=== PATIENT | female | born 1960 | race Caucasian/White ===

== ENCOUNTER 2020-02-01 17:41 | Outpatient (CLI) | payer OTHER, SELFPAY ==
--- NOTE | ~2020-02-01 | MM_ITS ---
EXAMINATION: MM screening [facility] BI w brian HISTORY: Screening TECHNIQUE: Craniocaudal and mediolateral oblique 3-D tomosynthesis images were obtained and synthetic 2-D images were generated. CAD analysis was submitted and interpreted. COMPARISON: Comparison to multiple prior studies sequentially, with oldest reviewed study dated 01/2015. BREAST PARENCHYMAL COMPOSITION: The breasts are heterogeneously dense, which may obscure small masses . FINDINGS: There are stable benign bilateral breast calcifications and asymmetries. There is no eviden ce of suspicious mass, calcification, or architectural distortion to suggest malignancy in either ahsan ast. There has been no suspicious interval change. IMPRESSION: 1. No mammographic evidence of malignancy. 2. Recommend routine screening mammography in one year. BI-RADS Category 2: Benign finding(s). Reviewed, dictated and finalized at location A.
== END 2020-02-01 17:42 | disposition home or self-care (01) ==
PROVIDERS: PCP Family Medicine; Visit Provider Family Medicine
DX: Z12.31 Encounter for screening mammogram for malignant neoplasm of breast (principal)
CPT/HCPCS: 77063; 77067

== ENCOUNTER 2020-09-22 17:45 | Outpatient (CLI) | payer OTHER, SELFPAY | END 2020-09-22 17:46 | disposition home or self-care (01) | LOC: ANHCOVIDVC 17:45 | PROVIDERS: PCP Family Medicine | DX: Z23 Encounter for immunization (principal) | CPT/HCPCS: 0001A; 91300 ==

== ENCOUNTER 2020-10-13 17:47 | Outpatient (CLI) | payer OTHER, SELFPAY | END 2020-10-13 17:48 | disposition home or self-care (01) | LOC: ANHCOVIDVC 17:47 | PROVIDERS: PCP Family Medicine | DX: Z23 Encounter for immunization (principal) | CPT/HCPCS: 0002A; 91300 ==

== ENCOUNTER 2021-02-01 17:46 | Outpatient (CLI) | payer OTHER, SELFPAY ==
--- NOTE | ~2021-02-01 | MM_ITS ---
EXAMINATION: MM screening [facility] BI w brian HISTORY: Screening mammogram TECHNIQUE: Craniocaudal and mediolateral oblique 3-D tomosynthesis images were obtained and synthetic 2-D images were generated. CAD analysis was submitted and interpreted. COMPARISON: 02/01/2020, 01/22/2019, 01/20/2018, 01/13/2018 BREAST PARENCHYMAL COMPOSITION: There are scattered areas of fibroglandular density. FINDINGS: There is no evidence of suspicious mass, calcification, or architectural distortion to sugg est malignancy in either breast. There has been no suspicious interval change. IMPRESSION: 1. No mammographic evidence of malignancy. 2. Recommend routine screening mammography in one year. BI-RADS Category 1: Negative Reviewed, dictated and finalized at location A.
== END 2021-02-01 17:47 | disposition home or self-care (01) ==
LOC: ANHIMG 17:48
PROVIDERS: PCP Family Medicine; Visit Provider Family Medicine
DX: Z12.31 Encounter for screening mammogram for malignant neoplasm of breast (principal)
CPT/HCPCS: 77063; 77067

== ENCOUNTER 2021-10-05 18:26 | Emergency (ER) | payer OTHER, SELFPAY ==
[2021-10-05 18:48] VITALS: BP 139/88; PULSE 81; RESP 18; TEMP 37.3; O2SAT 100
--- NOTE | 2021-10-05 19:15 | ED.URI ---
HPI - URI/Sore Throat General Chief Complaint: Upper Respiratory Infection Stated Complaint: sorethroat,cough Time Seen by Provider: 10/05/21 18:38 Source: patient Mode of arrival: ambulatory Limitations: no limitations History of Present Illness HPI Narrative: 61-year-old female presents to [facility] with complaints of sore throat, postnasal drainage, nonproductive cough, hoarseness, nasal congestion and sinus pressure for the past 2 to 3 weeks. Patient took 1 dose of Claritin with little relief. Patient denies sick contacts. Patient denies recent travel. Patient is a non-smoker. MD elicited complaint: cough, rhinorrhea, nasal congestion and sinus pain Onset (ago): week(s) (2) Able to tolerate fluids by mouth: Yes Treatments prior to arrival: cold medicine Related Data Home Medications Medication Instructions Recorded Confirmed denosumab 60 mg/mL subcutaneous 60 mg SUBCUT [id number] 01/11/21 10/05/21 syringe Allergies Allergy/AdvReac Type Severity Reaction Status Date / Time Sulfa (Sulfonamide Allergy Severe RASH Verified 10/05/21 18:58 Antibiotics) sulfanilamide Allergy Unknown Rash Verified 10/05/21 18:58 ibandronate sodium AdvReac Severe Unknown Verified 10/05/21 18:58 [From [facility]] Review of Systems Constitutional: Constitutional: Denies chills, Denies fatigue, Denies fever(s) and Denies weakness ENT: Reports nasal congestion and Reports sore throat Cardiovascular: Cardiovascular: Denies chest pain, Denies rapid heart rate and Denies slow heart rate Respiratory: Respiratory: Reports cough, Denies dyspnea and Denies wheezing Gastrointestinal: Gastrointestinal: Denies abdominal pain, Denies diarrhea, Denies nausea and Denies vomiting PMF Past Medical History Medical History BMI 26.0-26.9,adult Osteoporosis Screening for breast cancer Screening mammogram for high-risk patient Stage 3 chronic kidney disease Family History Family History Father Hypertension Social History Social History Smoking status: Never smoker Alcohol intake: current Comments At time of signature, I agree with nursing past medical, surgical, social and family history. There is no relevant family history pertinent to the presenting complaint. Exam Const: General: no acute distress Nutritional Appearance: well nourished Orientation/consciousness: patient oriented x3 HENMT: Head: normal to inspection Ears: external ears normal and TM's normal bilaterally General nose exam: Normal external nose present Face and sinus: sinus tenderness frontal Mouth: Yes Normal oral and palatal mucosa present and Yes moist mucous membranes Throat: posterior oropharynx normal and uvula midline Other: Mild bilateral nasal congestion noted Neck: Neck: normal visual inspection Resp: Effort & Inspection: normal respiratory effort and not tachypneic Auscultation: clear to auscultation bilaterally Cardio: Rate: regular rate Rhythm: regular rhythm Skin: General skin exam: normal color Rashes: no rashes Wounds: no wounds Neuro: General: patient oriented x3, moves all extremities and no meningeal signs Extrem: General: normal to inspection Psych: Appearance: grossly normal Affect: normal affect Attitude: cooperative Thought content: Yes Normal thought content present Course Course Level of Care: Express Care Visit Vital Signs Vital signs: Vital Signs Temperature 37.3 C 10/05/21 18:48 Pulse Rate 81 10/05/21 18:48 Respiratory Rate 18 10/05/21 18:48 Blood Pressure 139/88 10/05/21 18:48 Pulse Oximetry 100 10/05/21 18:48 Temperature 37.3 C 10/05/21 18:48 Pulse Rate 81 10/05/21 18:48 Respiratory Rate 18 10/05/21 18:48 Blood Pressure 139/88 10/05/21 18:48 Pulse Oximetry 100 10/05/21 18:48 MDM - URI/Sore Throat
== END 2021-10-05 19:26 | disposition home or self-care (01) ==
PROVIDERS: Emergency Provider Nurse Practitioner Family; PCP Family Medicine
DX: J01.90 Acute sinusitis, unspecified (principal)
CPT/HCPCS: 99213; G0463

== ENCOUNTER 2021-11-27 18:56 | Emergency (ER) | payer OTHER, SELFPAY ==
[2021-11-27 19:25] VITALS: BP 133/69; PULSE 80; RESP 17; TEMP 36.6; O2SAT 99
--- NOTE | 2021-11-27 20:03 | ED.GENADULT ---
HPI - General Adult General Chief complaint: Upper Respiratory Infection Stated complaint: lt earache,throat pain Source: patient Mode of arrival: ambulatory Limitations: no limitations History of Present Illness HPI narrative: Patient presents for evaluation of sore throat and left-sided ear pain since 1600 today. She states she had similar symptoms back in September and October. She was treated both times with augmentin. She did have improvement in her symptoms once on the medication. She has had postnasal drainage and occasional cough since that time. Symptoms have improved and she has experienced recurrence thereafter. No fever, chills, nausea, vomiting, diarrhea. She feels like there is something at the back of her tongue on the left side. She does not feel like there is a food bolus. She is a former smoker but quit many years ago. She feels like her symptoms improved in the past when she went down to [place]. She is wondering whether her symptoms are allergy related. She has been taking Claritin and Flonase. No recent sick contacts. She has received her COVID vaccinations Related Data Home Medications Medication Instructions Recorded Confirmed fluticasone propionate 50 1 ea intranasal DIRECTED 11/27/21 11/27/21 mcg/actuation nasal spray,suspension loratadine 10 mg tablet 10 tablet DAILY 11/27/21 11/27/21 Allergies Allergy/AdvReac Type Severity Reaction Status Date / Time Sulfa (Sulfonamide Allergy Severe RASH Verified 11/27/21 19:36 Antibiotics) sulfanilamide Allergy Unknown Rash Verified 11/27/21 19:36 ibandronate sodium AdvReac Severe Unknown Verified 11/27/21 19:36 [From [facility]] Review of Systems Review of Systems: CONSTITUTIONAL: Denies fever, chills, or sweats. EYES: Denies visual changes, redness, or discharge. ENT: Reports sore throat and left-sided otalgia. CARDIOVASCULAR: Denies chest pain, palpitations, or edema. RESPIRATORY: Reports occasional cough. Denies shortness of breath. GASTROINTESTINAL: Denies abdominal pain, nausea, vomiting, or diarrhea. GENITOURINARY: Denies dysuria or hematuria. SKIN: Denies rash or itching. MUSCULOSKELETAL: Denies back pain, joint pain, or myalgia. NEUROLOGIC: Denies headache, numbness, dizziness, or weakness. PSYCHIATRIC: Denies anxiety or depression. [facility] Past Medical History Medical History (Updated 11/27/21 @ 20:09 by BERTRAM Rodriguez, ) BMI 26.0-26.9,adult Osteoporosis Screening for breast cancer Screening mammogram for high-risk patient Stage 3 chronic kidney disease Surgical History Surgical History History of ankle surgery History of bladder surgery Family History Family History Father Hypertension Osteoporosis Mother Hypertension Osteoporosis Sibling Osteoporosis Hypertension Social History Social History (Updated 11/27/21 @ 20:09 by BERTRAM Rodriguez, ) Smoking status: Former smoker Second hand tobacco smoke exposure: Yes Alcohol intake: current Substance use: never Substance use type: does not use Living arrangements: with family 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 HEAD: Normocephalic, atraumatic. EYES: PERRLA and EOMI. ENT: Nares clear, no rhinorrhea or epistaxis. Mucous membranes moist. Oropharynx without tonsillar hypertrophy exudate or other lesions. Bilateral TMs are pearly braun and nonbulging. There is small amount of serous fluid on the left NECK: Supple. No adenopathy or masses. No carotid bruits or JVD CHEST: Clear to auscultation. No respiratory distress.
[2021-11-29 02:56] LABS: SARS-CoV-2 RNA PCR Negative
== END 2021-11-27 20:08 | disposition home or self-care (01) ==
PROVIDERS: Emergency Provider Nurse Practitioner; PCP Family Medicine
DX: J02.9 Acute pharyngitis, unspecified (principal); H92.02 Otalgia, left ear; Z20.822 Contact with and (suspected) exposure to COVID-19; N18.30 Chronic kidney disease, stage 3 unspecified; Z87.891 Personal history of nicotine dependence; M81.0 Age-related osteoporosis without current pathological fracture
CPT/HCPCS: 87081; 87880; 99213; C9803; G0463; U0003; U0005

== ENCOUNTER 2022-03-26 17:11 | Outpatient (CLI) | payer OTHER, SELFPAY ==
--- NOTE | ~2022-03-26 | MM_ITS ---
EXAMINATION: MM screening [facility] w [facility] HISTORY: Screening TECHNIQUE: Craniocaudal and mediolateral oblique 3-D tomosynthesis images were obtained and synthetic 2-D images were generated. CAD analysis was submitted and interpreted. COMPARISON: Comparison to multiple prior studies sequentially, with oldest reviewed study dated 11/22. BREAST PARENCHYMAL COMPOSITION: There are scattered areas of fibroglandular density. FINDINGS: There is no evidence of suspicious mass, calcification, or architectural distortion to sugg est malignancy in either breast. There has been no suspicious interval change. IMPRESSION: 1. No mammographic evidence of malignancy. 2. Recommend routine screening mammography in one year. BI-RADS Category 1: Negative Reviewed, dictated and finalized at location A.
== END 2022-03-26 17:12 | disposition home or self-care (01) ==
PROVIDERS: PCP Family Medicine; Visit Provider Family Medicine
DX: Z12.31 Encounter for screening mammogram for malignant neoplasm of breast (principal)
CPT/HCPCS: 77063; 77067

== ENCOUNTER 2022-07-15 10:52 | Day surgery (SDC) | payer OTHER, SELFPAY ==
[2022-05-22 10:32] VITALS: BMI 27.2
[2022-07-02 10:59] VITALS: BMI 28.0
--- NOTE | 2022-07-12 14:34 | PM.HPGS ---
History of Present Illness History of Present Illness Consent: Risks, benefits, and alternatives have been discussed and questions answered. Patient agrees to proceed with procedure. Chief complaint: Neoplam Screening Narrative: Rohini Crisostomo is a 61 year old female Referred for colon cancer screening. Her last colonoscopy was 10 years ago Review of Systems Review of Systems: All systems reviewed & are unremarkable except as noted in HPI and below PMFSH Past Medical History Medical History BMI 26.0-26.9,adult Hypothyroidism Osteoporosis Screen for colon cancer Screening for breast cancer Screening mammogram for high-risk patient Surgical History Surgical History History of ankle surgery History of bladder surgery Family History Family History Father Hypertension Osteoporosis Cancer Thyroid disorder Mother Hypertension Osteoporosis Cancer Sibling Osteoporosis Hypertension Social History Social History Smoking status: Never smoker Second hand tobacco smoke exposure: Yes Alcohol intake: current Substance use: never Substance use type: does not use Living arrangements: with family Occupation/Education: retired 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 Gender identity (if verbalized by the patient): Female Sexual Orientation (if Verbalized by the Patient): Straight or Heterosexual Spiritual care concerns: No Meds Home Medications and Allergies Home Medications Medication Instructions Recorded Confirmed Type loratadine 10 mg tablet 10 tablet DAILY 11/27/21 07/15/22 History cholecalciferol (vitamin D3) 10 10 mcg PO DAILY 12/12/21 07/15/22 History mcg (400 unit) capsule denosumab 60 mg/mL subcutaneous 60 mg subcut [id number] 12/12/21 07/15/22 History syringe (Prolia) multivitamin 1 tablet PO DAILY 12/12/21 07/15/22 History calcium carbonate 200 mg calcium 200 mg PO BID 01/21/22 07/15/22 History (500 mg) chewable tablet (Hussain-Gest Antacid) levothyroxine 50 mcg tablet See Rx Instructions .Route 03/17/22 07/15/22 Rx .COMPLEX #90 tabs lutein 20 mg-zeaxanthin 1,000 mcg 1 cap PO BID 07/02/22 07/15/22 History capsule Allergies Allergy/AdvReac Type Severity Reaction Status Date / Time Sulfa (Sulfonamide Allergy Severe RASH Verified 07/15/22 11:14 Antibiotics) ibandronate sodium AdvReac Severe Unknown Verified 07/15/22 11:14 [facility] Exam Const: General: alert Orientation/consciousness: patient oriented x3 Resp: Auscultation: clear to auscultation bilaterally Cardio: Rhythm: regular rhythm GI: GI Palp: Yes Soft to palpation and No Tenderness to palpation present (GI) Neuro: General: patient oriented x3 Assessment and Plan Assessment and plan (1) Screen for colon cancer: Code(s): Z12.11 - Encounter for screening for malignant neoplasm of colon Status: Acute Assessment and Plan: Colonoscopy with possible biopsy or polypectomy or cautery or injection of substances.
--- NOTE | 2022-07-15 07:26 | WPDANESEPPF ---
Anes - Initial Pre Proc Eval Procedure: Operation Date: 07/15/22 12:30 Proposed Procedures p Screening Colonoscopy - Dakota Raza MD Date/Time: 07/15/22 07:26 Surgeon: Dakota Raza MD Pre Op Diagnosis: Neoplam Screening Patient Data Age: 61 Gender: F Height: 1.68 m Weight: 79 kg Allergies Allergy/AdvReac Type Severity Reaction Status Date / Time Sulfa (Sulfonamide Allergy Severe RASH Verified 07/15/22 11:14 Antibiotics) ibandronate sodium AdvReac Severe Unknown Verified 07/15/22 11:14 [From [facility]] Home Medications Medication Instructions Recorded Confirmed Type loratadine 10 mg tablet 10 tablet DAILY 11/27/21 07/15/22 History cholecalciferol (vitamin D3) 10 10 mcg PO DAILY 12/12/21 07/15/22 History mcg (400 unit) capsule denosumab 60 mg/mL subcutaneous 60 mg subcut [id number] 12/12/21 07/15/22 History syringe (Prolia) multivitamin 1 tablet PO DAILY 12/12/21 07/15/22 History calcium carbonate 200 mg calcium 200 mg PO BID 01/21/22 07/15/22 History (500 mg) chewable tablet (Hussain-Gest Antacid) levothyroxine 50 mcg tablet See Rx Instructions .Route 03/17/22 07/15/22 Rx .COMPLEX #90 tabs lutein 20 mg-zeaxanthin 1,000 mcg 1 cap PO BID 07/02/22 07/15/22 History capsule Patient hx anesthesia problems: none Family hx anesthesia problems: none Results Review: All pre-operative results and documents have been reviewed as part of the pre-operative evaluation. COUNTS INCLUDE 234 BEDS AT THE [facility] Past Medical History Medical History (Updated 07/15/22 @ 11:35 by Ayad Arellano DO) BMI 26.0-26.9,adult Hypothyroidism Osteoporosis Screen for colon cancer Screening for breast cancer Screening mammogram for high-risk patient Surgical History Surgical History History of ankle surgery History of bladder surgery Family History Family History Father Hypertension Osteoporosis Cancer Thyroid disorder Mother Hypertension Osteoporosis Cancer Sibling Osteoporosis Hypertension Social History Social History Smoking status: Never smoker Second hand tobacco smoke exposure: Yes Alcohol intake: current Substance use: never Substance use type: does not use Living arrangements: with family Occupation/Education: retired 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 Gender identity (if verbalized by the patient): Female Sexual Orientation (if Verbalized by the Patient): Straight or Heterosexual Spiritual care concerns: No Anes - Eval Final PreProcedure Day of Procedure 07/15/22 07:26 Patient weight: overweight Heart: regular rate and rhythm Lungs: clear to auscultation Airway: Mallampati scale class II Neurological: alert and oriented Last oral intake: >/= 8 hours ASA classification: II Emergent: no Anesthetic plan: proceed Anesthesia type and monitoring: general GIVS and standard monitoring Results Review: All pre-operative results and documents have been reviewed as part of the pre-operative evaluation. Informed Consent: The patient's anesthetic plan and its attendant risks and benefits were discussed with the patient/family/POA. Questions were solicited and answers provided to the satisfaction of the patient/family/POA.
[2022-07-15 11:15] VITALS: BP 140/87; PULSE 70; RESP 16; TEMP 36.8; O2SAT 100
[2022-07-15] MEDS: LACTATED RINGERS 1,000 ML 150 ML IV CONT (11:40)
[2022-07-15 13:23] VITALS: BP 88/59; PULSE 67; RESP 16; O2SAT 100
[2022-07-15 13:33] VITALS: BP 83/71; PULSE 70; RESP 16; O2SAT 100
[2022-07-15 13:43] VITALS: BP 109/76; PULSE 61; RESP 18; O2SAT 100
--- NOTE | 2022-07-15 14:22 | WPDANESPN ---
Anes - Prog Note Post-Op Date/Time: 07/15/22 14:22 Cardiovascular status: normal Respiratory status: normal Airway patency: baseline Mental status: baseline Post-Op hydration status: normal Vital Signs: Last Vital Signs Temp 36.8 C 07/15/22 11:15 Pulse 61 07/15/22 13:43 Resp 18 07/15/22 13:43 BP 109/76 07/15/22 13:43 Pulse Ox 100 07/15/22 13:43 O2 Del Method Room Air 07/15/22 13:43 Pain Score (VAS): 0 I/O: Intake & Output 07/14/22 07/15/22 07/15/22 23:59 07:59 15:59 Intake Total 1160 Balance 1160 Post-procedural complaints: none Patient Feedback: Patient satisfied with anesthetic care. Other Findings: Patient vital signs back to baseline. Patient denies nausea and vomiting. Patient's pain under control. Patient OK for discharge.
== END 2022-07-15 14:06 | disposition home or self-care (01) ==
PROVIDERS: PCP Family Medicine; Visit Provider Internal Medicine Gastroenterology
PROC: 0DJD8ZZ Inspection of Lower Intestinal Tract, Via Natural or Artificial Opening Endoscopic (ICD-10-PCS; CPT 45378; principal; 2022-07-15 12:30)
DX: Z12.11 Encounter for screening for malignant neoplasm of colon (principal)
CPT/HCPCS: 45378

== ENCOUNTER 2022-07-26 16:10 | Emergency (ER) | payer OTHER, SELFPAY ==
[2022-07-26 16:21] VITALS: BP 146/81; PULSE 74; RESP 18; TEMP 36.4; O2SAT 99
--- NOTE | 2022-07-26 16:41 | ED.URI ---
HPI - URI/Sore Throat General Chief Complaint: Upper Respiratory Infection Stated Complaint: runny nose, congestion, sore throat, coughing Time Seen by Provider: 07/26/22 16:44 Source: patient, RN notes reviewed and old records reviewed Mode of arrival: ambulatory Limitations: no limitations History of Present Illness HPI Narrative: 61-year-old female presents to the [facility] with complaints runny nose, congestion, sore throat and coughing for 6 days reports that her granddaughter tested positive for influenza A. MD elicited complaint: cough, sore throat and rhinorrhea Related Data Home Medications Medication Instructions Recorded Confirmed denosumab 60 mg/mL subcutaneous 60 mg subcut [id number] 12/12/21 07/26/22 syringe (Prolia) multivitamin 1 tablet PO DAILY 12/12/21 07/26/22 lutein 20 mg-zeaxanthin 1,000 mcg 1 cap PO BID 07/02/22 07/26/22 capsule collagen (bovine) 100 % topical 1 applic topical DAILY 07/22/22 07/26/22 powder lactobacillus combination no.9 4 4,000 mmu cells PO DAILY 07/22/22 07/26/22 billion cell capsule (Adult 50 Plus Probiotic) tumeric 100 mg-vipul 150 mg-olive 1 cap PO DAILY 07/22/22 07/26/22 50 mg-oreg 150 mg-caprylate capsule Allergies Allergy/AdvReac Type Severity Reaction Status Date / Time Sulfa (Sulfonamide Allergy Severe RASH Verified 07/26/22 16:39 Antibiotics) ibandronate sodium AdvReac Severe Unknown Verified 07/26/22 16:39 [From [facility]] Review of Systems Review of Systems: All systems reviewed & are unremarkable except as noted in HPI and below Constitutional: Constitutional: Reports no additional constitutional complaints Eyes: Eyes: Reports no additional eye complaints ENT: Reports as per HPI Cardiovascular: Cardiovascular: Reports no additional cardiovascular complaints, Denies chest pain and Denies dyspnea Respiratory: Respiratory: Reports as per HPI, Denies chest congestion, Reports cough and Denies dyspnea Gastrointestinal: Gastrointestinal: Reports no additional gastrointestinal complaints, Denies abdominal pain, Denies nausea and Denies vomiting Musculoskeletal: Musculoskeletal: Reports no additional musculoskeletal complaints Integumentary/Breasts: Skin/Breast: Reports system reviewed and no additional complaints, except as docu Neurologic: Reports system reviewed and no additional complaints, except as documented Psychiatric: Psychiatric: Reports no additional psychiatric complaints Allergic/Immunologic: Allergic/Immunologic: Reports no additional allergic/immunologic complaints [facility] Past Medical History Medical History BMI 26.0-26.9,adult Hypothyroidism Osteoporosis Overweight with body mass index (BMI) of 28 to 28.9 in adult Screen for colon cancer Screening for breast cancer Screening mammogram for high-risk patient Surgical History Surgical History History of ankle surgery History of bladder surgery Family History Family History Father Hypertension Osteoporosis Cancer Thyroid disorder Mother Hypertension Osteoporosis Cancer Sibling Osteoporosis Hypertension Social History Social History Smoking status: Never smoker Second hand tobacco smoke exposure: Yes Alcohol intake: current Substance use: never Substance use type: does not use Living arrangements: with family Occupation/Education: retired 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 The
== END 2022-07-26 17:27 | disposition home or self-care (01) ==
PROVIDERS: Emergency Provider Nurse Practitioner; PCP Family Medicine
DX: J06.9 Acute upper respiratory infection, unspecified (principal); E03.9 Hypothyroidism, unspecified
CPT/HCPCS: 87081; 87880; 99213; G0463

== ENCOUNTER 2022-08-08 23:59 | Emergency (ER) | payer OTHER, SELFPAY ==
[2022-08-09 00:44] VITALS: BP 159/88; PULSE 73; RESP 17; TEMP 36.7; O2SAT 100
[2022-08-09 01:23] LABS: Bacteria Urine None Seen /hpf; Non Pathogenic Casts 0-2; RBC Urine >100 /hpf (0-2); Squamous Epithelial Cell Urine None seen /hpf (Few); WBC Urine >100 /hpf
[2022-08-09 02:28] LABS: Appearance Urine Turbid (Clear); Color Urine Orange (Yellow); Glucose Urine UA Negative (Negative); Ketones Urine Negative (Negative); Protein Urine 2+ mg/dL (Negative); pH Urine 6.5 (5.0-9.0)
[2022-08-09 02:29] LABS: Bilirubin Urine Negative (Negative); Blood Urine 3+ (Negative); Leukocyte Esterase Ur 3+ LEU/UL (Negative); Nitrate Urine Negative (Negative)
--- NOTE | 2022-08-09 03:37 | ED.GENADULT ---
HPI - General Adult General Chief complaint: Urogenital-Female Stated complaint: UTI symptoms Time Seen by Provider: 08/09/22 03:24 History of Present Illness HPI narrative: Patient 62-year-old female who presents emerged part with chief complaint of dysuria and possible UTI. The patient reports she recently had an upper respiratory infection was treated with Augmentin but then subsequently developed reaction the patient states she was put on a Medrol Dosepak and then was transitioned to prednisone. Patient states that today she noticed that she started having urinary frequency and burning with urination and was concerned that she had a UTI. Related Data Home Medications Medication Instructions Recorded Confirmed denosumab 60 mg/mL subcutaneous 60 mg subcut [id number] 12/12/21 08/05/22 syringe (Prolia) multivitamin 1 tablet PO DAILY 12/12/21 08/05/22 lutein 20 mg-zeaxanthin 1,000 mcg 1 cap PO BID 07/02/22 08/05/22 capsule collagen (bovine) 100 % topical 1 applic topical DAILY 07/22/22 08/05/22 powder lactobacillus combination no.9 4 4,000 mmu cells PO DAILY 07/22/22 08/05/22 billion cell capsule (Adult 50 Plus Probiotic) tumeric 100 mg-vipul 150 mg-olive 1 cap PO DAILY 07/22/22 08/05/22 50 mg-oreg 150 mg-caprylate capsule loratadine 10 mg tablet (Claritin) 10 mg PO DAILY 08/05/22 08/05/22 Allergies Allergy/AdvReac Type Severity Reaction Status Date / Time Sulfa (Sulfonamide Allergy Severe RASH Verified 08/05/22 10:32 Antibiotics) ibandronate sodium AdvReac Severe Dizziness Verified 08/05/22 10:32 [From [facility]] Review of Systems Review of Systems: A 10 system review of systems was completed on the patient and is negative except for what is stated in the HPI. Nursing and ancillary documentation was reviewed. [facility] Past Medical History Medical History BMI 26.0-26.9,adult Hypothyroidism Osteoporosis Overweight with body mass index (BMI) of 28 to 28.9 in adult Screen for colon cancer Screening for breast cancer Screening mammogram for high-risk patient Surgical History Surgical History History of ankle surgery History of bladder surgery Family History Family History Father Hypertension Osteoporosis Cancer Thyroid disorder Mother Hypertension Osteoporosis Cancer Sibling Osteoporosis Hypertension Social History Social History Smoking status: Never smoker Second hand tobacco smoke exposure: Yes Alcohol intake: current Substance use: never Substance use type: does not use Living arrangements: with family Occupation/Education: retired 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 HEAD: Normocephalic, atraumatic. EYES: PERRLA and EOMI. ENT: Nares clear, no rhinorrhea or epistaxis. Mucous membranes moist. NECK: Supple. CHEST: Clear to auscultation. No respiratory distress. HEART: Regular rate and rhythm. No murmur heard. Normal peripheral pulses. ABDOMEN: Soft, nontender, nondistended, normal active bowel sounds. EXTREMITIES: Normal range of motion. No edema. SKIN: Warm, dry, no rash. NEURO: No focal deficits. Alert and oriented x3. PSYCH: Normal mood and affect. Course Vital Signs Vital signs: Vital Signs Temperature 36.7 C 08/09/22 00:44 Pulse Rate 73 08/09/22 00:44 Respiratory Rate 17 08/09/22 00:44 Blood Pressure 159/88 H 08/09/22 00:44 Pulse Oximetry 100 08/09/22 00:44 Oxygen Delivery Room Air
[2022-08-09 03:43] LABS: Add Urine Microscopic? YES
[2022-08-09] MEDS: CEFDINIR 300 MG CAPSULE PO (04:04)
[2022-08-09 04:06] VITALS: BP 133/69; PULSE 89; RESP 18; TEMP 36.6; O2SAT 99
== END 2022-08-09 04:06 | disposition home or self-care (01) ==
PROVIDERS: Emergency Provider Emergency Medicine; PCP Family Medicine
DX: N39.0 Urinary tract infection, site not specified (principal); E03.9 Hypothyroidism, unspecified; M81.0 Age-related osteoporosis without current pathological fracture
CPT/HCPCS: 81001; 87077; 87086; 87186; 99283; A9270

== ENCOUNTER 2023-01-20 13:29 | Outpatient (CLI) | payer OTHER, SELFPAY ==
--- NOTE | ~2023-01-20 | XR_ITS ---
EXAM: [id number] DATE: 01/20/2023 13:47 HISTORY: M79.671 - Pain in right foot, GENERAL PAIN, . COMPARISON: None available. FINDINGS: Decreased mineralization. No fracture or dislocation. No lytic or blastic lesion. Mild deg enerative change at the first MTP joint and multiple midfoot joints. Moderate degenerative change in the tibiotalar joint. Mild hallux valgus. Mild Achilles and moderate plantar enthesopathy. No erosion or periosteal change. Soft tissues within normal limits. 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 Reviewed, dictated and finalized at location K.
== END 2023-01-20 13:30 | disposition home or self-care (01) ==
PROVIDERS: PCP Family Medicine; Visit Provider Family Medicine
DX: M19.071 Primary osteoarthritis, right ankle and foot (principal)
CPT/HCPCS: 73630

== ENCOUNTER 2023-07-23 08:16 | Outpatient (CLI) | payer OTHER, SELFPAY ==
--- NOTE | ~2023-07-23 | MM_ITS ---
EXAMINATION: MM screening [facility] BI w brian HISTORY: Screening mammogram TECHNIQUE: Craniocaudal and mediolateral oblique 3-D tomosynthesis images were obtained and synthetic 2-D images were generated. CAD analysis was submitted and interpreted. COMPARISON: 03/26/2022, 02/01/2021, 02/01/2020 BREAST PARENCHYMAL COMPOSITION: There are scattered areas of fibroglandular density. FINDINGS: No suspicious mass, calcification, or architectural distortion are identified in either ahsan ast to suggest malignancy. There has been no suspicious interval change. IMPRESSION: 1. No mammographic evidence of malignancy. 2. Recommend routine screening mammography in one year. BI-RADS Category 1: Negative Reviewed, dictated and finalized at location A. [employer]
== END 2023-07-23 08:17 | disposition home or self-care (01) ==
LOC: ANHIMG 08:19
PROVIDERS: PCP Family Medicine; Visit Provider Family Medicine
DX: Z12.31 Encounter for screening mammogram for malignant neoplasm of breast (principal)
CPT/HCPCS: 77063; 77067

== ENCOUNTER 2023-08-13 10:51 | Outpatient (CLI) | payer OTHER, SELFPAY ==
--- NOTE | 2023-08-28 18:07 | WPDHOMESLEEP ---
Sleep Study - Home Unattended Date of Study: 08/13/23 Ordering Provider: Rafal Lopez MD Interpreting Provider: Tamica Wilson, DO Home Sleep Study Type: Watch PAT Height: 1.68 m Weight: 91.626 kg Body Mass Index: 32.5 Neck Circumference (inches): 14.5 Edmond: 3 Reason for Sleep Study Snoring, witnessed apneas Sleep History The patient is a 63-year-old female with hypothyroidism, macular degeneration, osteoporosis and seasonal allergies that had a sleep study ordered by her primary care physician for evaluation of sleep apnea. The patient denies awakening from sleep short of breath. She denies awakening at night with heartburn, belching or cough. She constantly snores loudly enough that others complain. She occasionally has trouble sleeping when she has a cold. She denies waking up gasping for air throughout the night. She occasionally has breathing problems at night observed by herself or others. She denies sweating excessively at night. She denies having heart palpitations or irregular heartbeats during the night. She rarely falls asleep during the day and never falls asleep while driving. She denies sleep paralysis, cataplexy and hypnagogic / hypnopompic hallucinations. She denies having trouble at school or work due to sleepiness. She denies feeling afraid of going to sleep. She rarely has nightmares and rarely remembers her dreams. She occasionally has thoughts racing through mind. She frequently feels sad or depressed. She occasionally has anxiety. She frequently has muscular tension. She denies noticing parts of her body jerk. She denies kicking during the night. She denies having crawling and aching feelings in her legs and denies having leg pain during the night. She occasionally grinds her teeth during sleep and occasionally awakens with morning jaw pain. She denies being bothered by pain during the day and denies being awakened by pain during the night. She frequently wakes up feeling stiff in the morning. She rarely wakes up with sore or achy muscles. She denies waking up with pain in the neck, spine and other joints. She goes to bed between 9-10 p.m. on both weekdays and weekends. It takes her 15 minutes to fall asleep. She wakes up once throughout the night at most to urinate and is able fall back asleep within a few minutes. She wakes up at 5:00 a.m. on both weekdays and weekends. She typically gets 7-8 hours of sleep per night. She does not stay in bed after waking up in the morning. She currently lives with her . She denies consuming any caffeinated beverages within 2 hours of bedtime. She denies engaging in physical exercise before bedtime. She denies reading before falling asleep. She will occasionally watch television before falling asleep. She denies taking naps in the afternoon or the evening. She consumes 2-3 cups of coffee and occasionally an ice tea. She quit smoking 40 years ago. She will occasionally consume alcoholic beverages. She denies recreational drug PMFSH Past Medical History Medical History BMI 26.0-26.9,adult BMI 31.0-31.9,adult BMI 32.0-32.9,adult Chronic fatigue COVID-19 Deviated septum Foot pain, right Hypothyroidism Osteoporosis Overweight with body mass index (BMI) of 28 to 28.9 in adult Screen for colon cancer Screening for breast cancer Screening mammogram for high-risk patient Surgical History Surgical History H/O colonoscopy History of ankle surgery History of bladder surgery Family History Family History Father Hypertension Osteoporosis Cancer Mother Hypertension Osteoporosis Cancer Thyroid disorder Sibling Osteoporosis Hypertension Social History Social History Smoking st
[2023-08-28 18:14] VITALS: BMI 32.5
== END 2023-08-14 07:30 | disposition home or self-care (01) ==
LOC: ANHCSM 10:52
PROVIDERS: PCP Family Medicine; Visit Provider Family Medicine
DX: G47.33 Obstructive sleep apnea (adult) (pediatric) (principal)
CPT/HCPCS: 95800

== ENCOUNTER 2023-11-09 10:09 | Emergency (ER) | payer OTHER, SELFPAY ==
[2023-11-09 10:17] VITALS: BP 128/99; PULSE 77; RESP 18; TEMP 36.6; O2SAT 99
--- NOTE | 2023-11-09 10:32 | ED.URI ---
HPI - URI/Sore Throat General Chief Complaint: Upper Respiratory Infection Stated Complaint: Cough,Congestion Time Seen by Provider: 11/09/23 10:33 Source: patient and RN notes reviewed Mode of arrival: ambulatory Limitations: no limitations History of Present Illness HPI Narrative: 63-year-old female presents with concern for one-week history of cough, chest congestion, sore throat. She reports runny nose, denies nasal congestion or sinus pain. Reports she had fever for the 1st 2 days of her symptoms. She reports she has been taking her your regular allergy medicine otherwise denies [id number] medications for her symptoms. MD elicited complaint: cough and sore throat Related Data Home Medications Medication Instructions Recorded Confirmed denosumab 60 mg/mL subcutaneous 60 mg subcut [id number] 12/12/21 11/09/23 syringe (Prolia) multivitamin 1 tablet PO DAILY 12/12/21 11/09/23 lutein 20 mg-zeaxanthin 1,000 mcg 1 cap PO BID 07/02/22 11/09/23 capsule collagen (bovine) 100 % topical 1 applic topical DAILY 07/22/22 11/09/23 powder lactobacillus combination no.9 4 4,000 mmu cells PO DAILY 07/22/22 11/09/23 billion cell capsule (Adult 50 Plus Probiotic) turmeric 100 mg-vipul 150 1 cap PO DAILY 07/22/22 11/09/23 mg-olive 50 mg-oreg 150 mg-capryl capsule cetirizine 10 mg chewable tablet 10 mg PO DAILY 01/20/23 11/09/23 (Zyrtec) cholecalciferol (vitamin D3) 10 10 mcg PO DAILY 01/20/23 11/09/23 mcg (400 unit) tablet (Vitamin D3) Allergies Allergy/AdvReac Type Severity Reaction Status Date / Time ibandronate sodium AdvReac Intermediate Dizziness Verified 11/09/23 10:22 [From Boniva] amoxicillin [From Augmentin] AdvReac Mild Rash Verified 11/09/23 10:22 clavulanic acid AdvReac Mild Rash Verified 11/09/23 10:22 [From Augmentin] Sulfa (Sulfonamide AdvReac Mild RASH Verified 11/09/23 10:22 Antibiotics) Review of Systems Review of Systems: CONSTITUTIONAL: Reports malaise, fatigue. Denies chills, sweats, or fever. EYES: Denies visual changes, redness, or discharge. ENT: Reports rhinorrhea and sore throat. Denies congestion, sinus pain, otalgia CARDIOVASCULAR: Denies chest pain, palpitations, or edema. RESPIRATORY: Reports cough and chest congestion. Denies dyspnea. GASTROINTESTINAL: Denies abdominal pain, nausea, vomiting, diarrhea SKIN: Denies rash or itching. MUSCULOSKELETAL: Denies myalgia. NEUROLOGIC: Denies headache. All systems reviewed & are unremarkable except as noted in HPI and below PMFSH Past Medical History Medical History (Updated 11/09/23 @ 10:48 by Nava Tena NP) Anxiety disorder, unspecified BMI 26.0-26.9,adult BMI 31.0-31.9,adult BMI 32.0-32.9,adult Chronic fatigue COVID-19 Deviated septum Foot pain, right Hypothyroidism Osteoporosis Overweight with body mass index (BMI) of 28 to 28.9 in adult Screen for colon cancer Screening for breast cancer Screening mammogram for high-risk patient Surgical History Surgical History H/O colonoscopy History of ankle surgery History of bladder surgery Family History Family History Father Hypertension Osteoporosis Cancer Mother Hypertension Osteoporosis Cancer Thyroid disorder Sibling Osteoporosis Hypertension Social History Social History (Updated 10/02/23 @ 10:40 by PEPE Woodruff) Smoking status: Never smoker Second hand tobacco smoke exposure: Yes Alcohol intake: current Substance use: never Substance use type: does not use Do You Feel Safe in your Home?: Yes Lack of Transportation: No Lack of Food: Never True Current Housing: I Have Housing Concerned About Future Housing: No Difficulty Paying Gas/Electric Bills: No Difficulty Paying for Meds: No Currently Unemployed: No Education: High School Diploma/GED Difficulty
== END 2023-11-09 10:52 | disposition home or self-care (01) ==
PROVIDERS: Emergency Provider Nurse Practitioner; PCP Family Medicine
DX: J40 Bronchitis, not specified as acute or chronic (principal); E03.9 Hypothyroidism, unspecified; M81.0 Age-related osteoporosis without current pathological fracture; Z86.16 Personal history of COVID-19
CPT/HCPCS: 87081; 87880; 99213; G0463

== ENCOUNTER 2023-12-23 12:44 | Outpatient (CLI) | payer OTHER, SELFPAY ==
--- NOTE | ~2023-12-23 | CT_ITS ---
CT of the Abdomen and Pelvis: Indication: Abdominal pain Technique: 2.5 mm axial scans were obtained through the abdomen and pelvis following intravenous adm inistration of 100 cc of Omnipaque 350. Dose reduction technique was used on this scan by utilizing a utomated exposure control and iterative reconstruction technique. The dose-length product (DLP) was 9 76.17 mGy-cm. Findings: Scans through the lung bases are unremarkable. The liver, spleen, pancreas, adrenals and kidneys are within normal limits. Small gallstone. No evide nce of aortic aneurysm. No lymphadenopathy. No bowel obstruction or bowel wall thickening. There is no evidence to suggest acute appendicitis. Images through the pelvis were performed. Urinary bladder unremarkable. No pelvic mass seen. No ascit es. Impression: No acute abnormality. Small gallstone. Reviewed, dictated and finalized at location . Impression: No acute abnormality. Small gallstone.
[2023-12-23 13:10] LABS: Estimated Glomerular Filt Rate > 60
== END 2023-12-23 12:45 ==
LOC: MICIMG 12:44
PROVIDERS: PCP Family Medicine
DX: R10.32 Left lower quadrant pain (principal); K80.20 Calculus of gallbladder without cholecystitis without obstruction
CPT/HCPCS: 74177; Q9967

== ENCOUNTER 2024-09-16 13:24 | Outpatient (CLI) | payer MEDICARE, SELFPAY ==
--- NOTE | ~2024-09-16 | MM_ITS ---
EXAMINATION: MM screening [facility] BI w brian HISTORY: Screening TECHNIQUE: Craniocaudal and mediolateral oblique 3-D tomosynthesis images were obtained and synthetic 2-D images were generated. CAD analysis was submitted and interpreted. COMPARISON: Comparison to multiple prior studies sequentially, with oldest reviewed study dated 01/22. BREAST PARENCHYMAL COMPOSITION: Not dense: There are scattered areas of fibroglandular density. FINDINGS: There is no evidence of suspicious mass, calcification, or architectural distortion to sugg est malignancy in either breast. There has been no suspicious interval change. IMPRESSION: 1. No mammographic evidence of malignancy. 2. Recommend routine screening mammography in one year. BI-RADS Category 1: Negative Reviewed, dictated and finalized at location A.
== END 2024-09-16 13:25 | disposition home or self-care (01) ==
LOC: MICIMG 13:26
PROVIDERS: PCP Family Medicine; Visit Provider Family Medicine
DX: Z12.31 Encounter for screening mammogram for malignant neoplasm of breast (principal)
CPT/HCPCS: 77063; 77067

== ENCOUNTER 2024-10-16 16:23 | Emergency (ER) | payer MEDICARE, SELFPAY ==
--- NOTE | ~2024-10-16 | XR_ITS ---
XR abdomen/kub 1V Ordering provider: BERTRAM Julio History: . hematuria and low back pain . Comparison: None. FINDINGS: BOWEL: Fecal material is loaded in the colon. Nonobstructive bowel gas pattern. ORGANOMEGALY: None. SIGNIFICANT PATHOLOGIC CALCIFICATIONS: Possible opacities over the left kidney are not excluded. This can be in the fecal material. OTHER: No free air is seen under the diaphragm. IMPRESSION: NO ACUTE ABDOMINAL FINDINGS. Opacities in the left renal area which may be stones. Noncontrast CT is better for evaluation. Constipation. Reviewed, dictated and finalized at location A.
[2024-10-16 16:42] VITALS: BP 149/91; PULSE 88; RESP 16; TEMP 36.3; O2SAT 100
--- NOTE | 2024-10-16 17:39 | ED.GENADULT ---
HPI - General Adult General Chief complaint: Urogenital-Female Stated complaint: UTI Time Seen by Provider: 10/16/24 17:40 Source: patient Mode of arrival: ambulatory Limitations: no limitations History of Present Illness HPI narrative: 64-year-old female patient presents to [facility] with complaints of urinary symptoms that started today. Patient states started with burning with urination this morning but states that the burning pain was intermittent especially after she started drinking some water. Patient states she has had some frequency and a little bit a low back pain. Denies any nausea vomiting or diarrhea. Denies fevers body aches or chills. Patient states she was last treated with Macrobid for UTI beginning of September. Related Data Home Medications ?Medication ?Instructions ?Recorded ?Confirmed ?Last Taken ?Type denosumab 60 mg/mL subcutaneous 60 mg subcut [id number] 12/12/21 10/04/24 Unknown History syringe (Prolia) multivitamin 1 tablet PO DAILY 12/12/21 10/04/24 Unknown History lutein 20 mg-zeaxanthin 1,000 mcg 1 cap PO BID 07/02/22 10/04/24 Unknown History capsule collagen (bovine) 100 % topical 1 applic topical DAILY 07/22/22 10/04/24 Unknown History powder lactobacillus combination no.9 4 4,000 mmu cells PO DAILY 07/22/22 10/04/24 Unknown History billion cell capsule (Adult 50 Plus Probiotic) turmeric 100 mg-vipul 150 1 cap PO DAILY 07/22/22 10/04/24 Unknown History mg-olive 50 mg-oreg 150 mg-capryl capsule cetirizine 10 mg chewable tablet 10 mg PO DAILY 01/20/23 10/04/24 Unknown History (Zyrtec) cholecalciferol (vitamin D3) 10 10 mcg PO DAILY 01/20/23 10/04/24 Unknown History mcg (400 unit) tablet (Vitamin D3) ciclopirox 8 % topical solution topical 01/08/24 10/04/24 Unknown History Allergies Allergy/AdvReac Type Severity Reaction Status Date / Time ibandronate sodium (From AdvReac Intermediate Dizziness Verified 10/16/24 17:10 Boniva) amoxicillin (From Augmentin) AdvReac Mild Rash Verified 10/16/24 17:10 clavulanic acid (From AdvReac Mild Rash Verified 10/16/24 17:10 Augmentin) Sulfa (Sulfonamide AdvReac Mild RASH Verified 10/16/24 17:10 Antibiotics) Review of Systems Review of Systems: CONSTITUTIONAL: Denies fever, chills, or sweats. EYES: Denies visual changes, redness, or discharge. ENT: Denies rhinorrhea, congestion, sore throat, or otalgia. CARDIOVASCULAR: Denies chest pain, palpitations, or edema. RESPIRATORY: Denies cough or dyspnea. GASTROINTESTINAL: Denies abdominal pain, nausea, vomiting, or diarrhea. GENITOURINARY: Positive dysuria denies gross hematuria. SKIN: Denies rash or itching. MUSCULOSKELETAL: Denies back pain, joint pain, or myalgia. NEUROLOGIC: Denies headache, numbness, or weakness. PSYCHIATRIC: Denies anxiety or depression. PMFSH Past Medical History Medical History Anxiety disorder, unspecified COVID-19 Chronic fatigue Deviated septum Foot pain, right Screen for colon cancer Screening mammogram for high-risk patient Osteoporosis Screening for breast cancer Hypothyroidism Surgical History Surgical History H/O colonoscopy History of bladder surgery History of ankle surgery Family History Family History Father Hypertension Osteoporosis Cancer Mother Hypertension Osteoporosis Cancer Thyroid disorder Sibling Osteoporosis Hypertension Social History Social History Smoking status: Never smoker Second hand tobacco smoke exposure: Yes Alcohol intake: current Substance use: never Substance use type: does not use Do You Feel Safe in your Home?: Yes Lack of Transportation: No Lack of Food: Never True Current Housing: I Have Housing Concerned About Future Housing: No Difficulty Paying Gas/Electric Bills: No Difficulty Paying for Meds: No Currently Unemployed: No Education: High School Diploma/GED Difficulty w/ Childcare or Family Care: No Living arrangements: with family Occupation/Education: retired 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 HEAD: Normocephalic, atraumatic. EYES: PERRLA and EOMI. ENT: Nares clear, no rhinorrhea or epistaxis. Mucous membranes moist. NECK: Supple. No lymphadenopathy CHEST: Clear to auscultation. No respiratory distress. HEART: Regular rate and rhythm. No murmur heard. Normal peripheral pulses. ABDOMEN: Soft, nontender, nondistended, normal active bowel sounds. mild bilateral CVA tenderness on percussion EXTREMITIES: Normal range of motion. No edema. SKIN: Warm, dry, no rash. NEURO: No focal deficits. Alert and oriented x3. Course Course Level of Care: Express Care Visit Reevaluation(s) Reevaluation #1: Notified patient that the x-ray does show evidence of possible kidney stones. Discussed with her that we will give her sometimes colon that is going to make her Pedialyte hopefully she will be able to pass out stones. Discussed with patient she needs to call her urologist on Friday for follow-up. I will provide her a strainer today as well. Patient may take Tylenol and ibuprofen as needed for pain. Patient verbalized understanding denies any other questions or concerns at this time. Date: 10/16/24 Time: 18:10 Vital Signs Vital signs: Vital Signs Temperature 36.3 C L 10/16/24 16:42 Pulse Rate 88 10/16/24 16:42 Respiratory Rate 16 10/16/24 16:42 Blood Pressure 149/91 H 10/16/24 16:42 Pulse Oximetry 100 10/16/24 16:42 Temperature 36.3 C L 10/16/24 16:42 Pulse Rate 88 10/16/24 16:42 Respiratory Rate 16 10/16/24 16:42 Blood Pressure 149/91 H 10/16/24 16:42 Pulse Oximetry 100 10/16/24 16:42 vital signs reviewed. The patient has been informed that they may have pre-hypertension or Hypertension based on a BP reading in the department. I recommend that the patient call the primary care provider listed on their discharge instructions or a physician of their choice this week to arrange follow up for further evaluation of possible pre-hypertension or Hypertension Medical Decision Making MDM Narrative Medical decision making narrative: Plan care patient is to obtain KUB. Discussed with her that her urine dip was not very suggestive of a UTI and the fact that her pain is intermittently does not sound consistent with UTI symptoms. Discussed with her I would like to rule out any type of kidney stones that could be causing the pain. Patient is in agreement with this plan of care at this time. Differential Diagnosis Differential Diagnosis: Differential diagnosis: Uncomplicated lower UTI, uncomplicated UTI, pyelonephritis Vital Signs Vital Signs: Vital Signs Temperature 36.3 C L 10/16/24 16:42 Pulse Rate 88 10/16/24 16:42 Respiratory Rate 16 10/16/24 16:42 Blood Pressure 149/91 H 10/16/24 16:42 Pulse Oximetry 100 10/16/24 16:42 Temperature 36.3 C L 10/16/24 16:42 Pulse Rate 88 10/16/24 16:42 Respiratory Rate 16 10/16/24 16:42 Blood Pressure 149/91 H 10/16/24 16:42 Pulse Oximetry 100 10/16/24 16:42 Lab Data Labs: Lab Results 10/16/24 Range/Units 17:39 POC Urine Color Light/pale POC Urine Clarity Clear POC Urine pH 6.0 POC Ur Specif [place] 1.005 POC Urine Protein Negative (Negative) POC Ur Glucose (UA) Negative (Negative) POC Urine Ketones Negative (Negative) POC Urine Blood 1+ (Negative) POC Urine Nitrite Negative (Negative) POC Urine Bilirubin Negative (Negative) POC Urine Urobilinogen 0.2 POC U Leukocyte Esteras Trace (Negative) Imaging Data Radiologist's impression: [address] [place] [address] XRay Report Signed Patient: Rohini Crisostomo : 1960 MR#: [id number] Age: 64 Acct:[id number] Loc: [facility] ADM Date: 10/16/24Attending Dr: Ordering Physician: Deepika Larsen LOAN AUDITOR Date of Service: 10/16/24 Procedure(s): XR abdomen/kub 1V Accession Number(s): [id number] cc: [facility]; Deepika Larsen APRN~ XR abdomen/kub 1V Ordering provider: BERTRAM Julio History: . hematuria and low back pain . Comparison: None. FINDINGS: BOWEL: Fecal material is loaded in the colon. Nonobstructive bowel gas pattern. ORGANOMEGALY: None. SIGNIFICANT PATHOLOGIC CALCIFICATIONS: Possible opacities over the left kidney are not excluded. This can be in the fecal material. OTHER: No free air is seen under the diaphragm. IMPRESSION: NO ACUTE ABDOMINAL FINDINGS. Opacities in the left renal area which may be stones. Noncontrast CT is better for evaluation. Constipation. Reviewed, dictated and finalized at location A. Critical Care Time Critical Care Time Critical Care Time: No Discharge Plan Discharge Clinical Impression: Kidney stone on left side, Constipation Patient Disposition: Home Condition: Stable Instructions: Antibiotic Form, Kidney Stones (ED) Additional Instructions: Drink larger quantities of fluids to help you pass kidney stones and change your diet to help prevent future stones. You may be asked to collect and strain your urine. This will allow your provider to check the size and type of stones that you have. Follow the treatment plan your healthcare provider prescribes. Follow activity restrictions, such as not driving or operating machinery, as recommended by your healthcare provider or pharmacist, especially if you are taking pain medicines. Ask your healthcare provider if there are any foods or medicines you should avoid. Drink enough fluids to keep your urine light yellow in color, unless you are told to limit fluids. Get plenty of rest while you???re recovering. Try to get at least 7 to 9 hours of sleep each night. Call your healthcare provider if you have new or worsening: Back pain Abdominal cramps or pain Burning with urination Blood in your urine Passing gravel-like or sand-like stones in the urine Nausea or vomiting Signs of infection around your surgical wound if you had surgery. These include: The area around your wound is more red or painful The wound area is very warm to touch You have blood, pus, or other fluid coming from your wound area You have chills or muscle aches Fever higher than 101.5?? F (38.6?? C) Patient Language: Occitan Prescriptions: New tamsulosin 0.4 mg capsule 0.4 mg PO DAILY 7 Days Qty: 7 0RF No Action fluticasone propionate [Flonase Allergy Relief] 50 mcg/actuation spray,suspension 2 spray intranasal DAILY Qty: 16 0RF Rx Instructions: administer into each nostril cetirizine [Zyrtec] 10 mg tablet,chewable 10 mg PO DAILY cholecalciferol (vitamin D3) [Vitamin D3] 10 mcg (400 unit) tablet 10 mcg PO DAILY ciclopirox 8 % solution topical multivitamin Tablet 1 tablet PO DAILY Prolia 60 mg/mL syringe 60 mg subcut [id number] Adult 50 Plus Probiotic 4 billion cell capsule 4,000 mmu cells PO DAILY Rx Instructions: administer with a meal zbdehjca-lyyb-iyyuc-oreg-capry 100 mg-150 mg- 50 mg-150 mg capsule 1 cap PO DAILY collagen (bovine) 100 % powder 1 applic topical DAILY Rx Instructions: apply a 1/4 inches inch thick layer, do not pack tightly; cover using a non-adherent dressing levothyroxine 50 mcg tablet See Rx Instructions .ROUTE .COMPLEX Qty: 90 3RF Dose Instruction: TAKE 1 TABLET BY MOUTH DAILY Rx Instructions: TAKE 1 TABLET BY MOUTH DAILY lutein-zeaxanthin 20 mg- 1,000 mcg Capsule 1 cap PO BID Follow-up/Referrals: Rebekah,Livan Susannah [Other] Time of Disposition: 18:09
[2024-10-16 17:41] LABS: EDUAAPPEAR Clear; EDUABILI Negative (Negative); EDUABLOOD 1+ (Negative); EDUACOLOR1 Light/Pale; EDUAGLUCOSE Negative (Negative); EDUAKETONE Negative (Negative); EDUALEUKO Trace (Negative); EDUANITRATE Negative (Negative); EDUAPROTEIN Negative (Negative); EDUASPGRAVITY 1.005; EDUAUROBILI 0.2
== END 2024-10-16 18:11 | disposition home or self-care (01) ==
PROVIDERS: Emergency Provider Nurse Practitioner Family
DX: N20.0 Calculus of kidney (principal); K59.00 Constipation, unspecified; E03.9 Hypothyroidism, unspecified; M81.0 Age-related osteoporosis without current pathological fracture; Z86.16 Personal history of COVID-19
CPT/HCPCS: 74018; 81003; 87086; 99213; G0463

== ENCOUNTER 2025-01-31 08:15 | Emergency (ER) | payer MEDICARE, SELFPAY ==
[2025-01-31 08:22] VITALS: BP 122/72; PULSE 81; RESP 16; TEMP 36.8; O2SAT 100
--- OUTSIDE RECORDS SUMMARY | 2025-01-31 08:27 | XMS_ITS | Clinical Summary ---
Author Organization [facility] Address [address] [place] [address] Care Team Providers Care Science Intern Name Role Phone Rafal Lopez MD Primary Care Provider Allergies Active Allergy Reactions Criticality Noted Date Comments Amoxicillin-Pot Clavulanate Rash Medium 08/12/19 23 Ibandronate Dizziness,Other (See comments) Low 05/10/2019 Sulfa (Sulfonamide Antibiotics) Rash Medium 05/30/2017 Medications levothyroxine (SYNTHROID) 50 mcg tablet 1 Active wycn5-atk-uld-fi sh oil-L.casei 120 mg-400 mg -4 billion cell capsule Take by mouth Active multivitamin-Ca- iron-minerals tablet Take by mouth Active digestive enzymes capsule Take by mouth Active turmeric root extract 500 mg capsule Take by mouth Active denosumab (Prolia) 60 mg/mL syringe Inject 1 mL (60 mg total) under the skin once Active denosumab (PROLIA) 60 mg/mL syringe Inject 1 mL (60 mg total) under the skin once for 1 dose Inject one syringe SC every six months 1 mL 2 Active cetirizine (ZyrTEC) 10 mg capsule 3 Active cholecalciferol 400 unit capsule Act summer collagen, bovine, 100 % powder 2 Active Lactobac no.41/Bifidobact no.7 (PROBIOTIC-10 ORAL) Active nitrofurantoin monohydrate (MACROBID) 100 mg capsule Take 1 capsule (100 mg total) by mouth 3 Active ZEAXANTHIN, BULK, MISC 2 Active fluticasone propionate (FLONASE) 50 mcg/actuation nasal spray Administer 1 spray into each nostril daily Active CALCIUM ORAL Take by mouth Act summer Active Problems Problem Noted Date Diagnosed Date Osteoporosis 08/21/2020 Encounters Date Type Department Care Team Description 01/24/2025 2:20 PM CDT Office Visit [facility] [address] [place] [address] [place] [phone] Andrei Ramirez MD Osteoporosis without current pathological fracture, unspecified osteoporosis type (Primary Dx) 01/24/2025 1:50 PM CDT Clinical Support [facility] [address] [place] [address] [place] [phone] Osteoporosis without current pathological fracture, unspecified osteoporosis type (Primary Dx); Age-related osteoporosis without current pathological fracture 01/24/2025 Telephone [facility] [address] [place] [address] Andrei Ramirez MD from Last 3 Months Family History Medical History Relation Name Comments Hip fracture Father Hip fracture Mother Osteoporosis Mother Osteoporosis Sister Broken bones Neg Hx Kyphosis Neg Hx Scoliosis Neg Hx Relation Name Status Comments Father Mother Sister Social History Tobacco Use Types Packs/Day Years Used Date Smoking Tobacco: Never Comments Unknown Sex and Gender Information Value Date Recorded Sex Assigned at Not on file Legal Sex Female 9:04 AM CDT Gender Identity Female 08/01/2020 9:52 AM CLOTH COVERER Sexual Orientation Straight 08/01/2020 9: 52 AM CLOTH COVERER Obstetrics History Last Filed Vital Signs Vital Sign Reading Time Taken Comments Blood Pressure 141/90 08/07/2020 12:17 PM CLOTH COVERER Pulse 75 08/07/2020 12:17 PM CLOTH COVERER Temperature 36.8 C (98.2 F) 08/07/2020 12:17 PM CLOTH COVERER Respiratory Rate - - Oxygen Saturation - - Inhaled Oxygen Concentration - - Weight 86.9 kg (191 lb 9.6 oz) 12/06/2022 1:19 P M CDT Height 167 cm (5' 5.75) 12/06/2022 1:19 PM CDT Body Mass Index 31.16 12/06/2022 1:19 PM CDT Plan of Treatment Health Maintenance Due Date Last Done Comments Breast Cancer Screening-Mammogram 1960 Colon Cancer Screening-Colonoscopy 1960 Depression Screening 1960 Fall Risk Assessment 1960 Hepatitis C Screening 1960 Hepatitis B Screening 08/09/1977 Pneumococcal vaccine 65+ (1 of 1 - PCV) 08/09/2009 Zoster Vaccine (1 of 2) 08/09/2009 Covid-19 Vaccine (3 - Pfizer risk series) 11/10/2020 10/13/2020, 09/22/2020 Cervical Cancer Screening 07/18/2023 07/18/2022 Well Visit 65+ 08/09/2024 Influenza Vaccine (#1) 2025 05/01/2020 Osteoporosis Screening-Bone Density Scan 01/24/2027 01/24/2025, 12/16/2023, 12/06/2022, Additional history exists DTaP/Tdap/Td Vaccine (3 - Td or Tdap) 05/01/2030 05/01/2020, 07/26/2015 Procedures Procedure Name Priority Date/Time Associated Diagnosis Comments DEXA TBS AXIAL SKELETON BONE DENSITY 1 OR MORE SITES Schedule Routine, Read Routine (OP Routine) 01/24/2025 2:16 PM CDT Age-related osteoporosis without current pathological fracture from Last 3 Months Results * Dexa TBS Axial Skeleton Bone Density 1 or more sites (01/24/2025 2:16 PM CDT) Anatomical Region Laterality Modality Wrist, Body N/A Radiographic Annemarie ging Narrative 01/25/2025 4:50 PM CDT Patient Name: Rohini Crisostomo Date of : 1960 Date of scan: 01/24/2025 Bone mineral density was performed on a [employer] Discovery Densitometer. Based on machine cross-calibration and precision studies the least significant changes of this densitometer is 0.024 g/cm2 at the spine, 0.020 g/cm2 at the total proximal femur, and 0.014g/cm2 at the forearm. HISTORY: This is a 64 y.o. postmenopausal female with a history of osteoporosis and thyroid disease. She reports that she has never smoked. She does not have any smokeless tobacco history on file. Currently on treatment with calcium, vitamin D, denosumab (Prolia), and thyroid hormone. INDICATIONS: Menopause status, treatment monitoring, and history of osteoporosis. FINDINGS: BONE MINERAL DENSITY OF THE LUMBAR SPINE Bone Mineral Density (BMD) of the lumbar spine was measured from L1-L3 and the average density was calculated to be 0.900 gm/cm2. This corresponds to a T-score (standard deviations from the mean of young adults) of -1.1. When compared to the previous study of 12/16/2023 there has been a 0.104 gm/cm (13.0%) increase in bone density that is considered significant. BONE MINERAL DENSITY OF THE PROXIMAL FEMUR Bone Mineral Density (BMD) of the left hip total was found to be 0.708 gm/cm2. This corresponds to a T-score standard deviations from the mean of young adults of -1.9. Femoral neck is 0.619 gm/cm2 with a T-score (standard deviations from the mean of young adults) of -2.1. When compared to the previous study of 12/16/2023 there has been a 0.026 gm/cm (3.8%) increase in bone density that is considered significant. BONE MINERAL DENSITY OF THE FOREARM Bone Mineral density (BMD) of the left proximal 1/3 of the radius measures 0.644 gm/cm2. This corresponds to a T-score (standard deviations from the mean of young adults) of -0.8. When compared to the previous study of 12/16/2023 there has been no significant changes in bone density. A forearm bone density study was performed in addition to the routine study due to the need to provide a comparison to the previous exam. SUMMARY: Bone mineral density shows evidence of low bone mass at the lumbar spine and proximal femur and moderately increased fracture risk (Osteopenia). There has been a significant increase in bone density since previous measurement. The lumbar spine Trabecular Bone Score is 1.173 which suggests degraded bone microarchitecture compared to the general population. Final decisions regarding diagnostic or therapeutic recommendations should include BMD, TBS, additional clinical risk factors as well the clinical context of the patient. Please see attached TBS results for further details. ADDITIONAL COMMENTS: Postmenopausal Women and Men Over 50: Diagnostic criteria: Osteoporosis: BMD at or below -2.5 T-score; Osteopenia (low bone mass): BMD between -1.0 and -2.5 T-score. If the patient has a history of a fragility fracture, a fracture that occurred with trauma equivalent to a fall from a standing position or less, then the diagnosis is osteoporosis regardless of bone density. The history and data sections of the bone mineral density scan were prepared by Alaina Arriaga)(CBDT)who is accredited by the International Society of Clinical Densitometry. The overall patient assessment and scan interpretation were performed by Andrei Ramirez M.D who is certified by the International Society of Clinical Densitometry. [id number] Andrei Ramirez MD IMG DXA PROCEDURES Final Result from Last 3 Months Insurance [employer] MEDICARE ADVANTAGE [place] [id number] Care Teams Science Intern Relationship Specialty Start Date End Date Rafal Lopez MD PCP - General Family Medicine 01/12/20
--- OUTSIDE RECORDS SUMMARY | 2025-01-31 08:27 | XMS_ITS | Encounter Summary ---
Author Organization [facility] Address [address] [place] [address] Care Team Providers Care Search Engine Marketing Strategist Name Role Phone Rafal Lopez MD Primary Care Provider Kalyani Soliz RN Unavailable Unavailab le Encounter Details Date Type Department Care Team (Late st Contact Info) Description 01/20/2019 Lab Requisition [facility] Care DermPath Lab [address] [place] [address] Rafal Lopez MD [address] [place] [address] Social History Tobacco Use Types Packs/Day Years Used Date Smoking Tobacco: Former Cigarettes Q uit: 06/09/1985 Smokeless Tobacco: Never Alcohol Use Standard Drinks/Week Comments Yes 0 (1 standard drink = 0.6 oz pur e alcohol) occassionally Comments No Sex and Gender Information Value Date Recorded Sex Assigned at Not on file Legal Sex Female 5:47 PM 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 Answer Date of Assessment Author No 09/01/2017 10:30 PM Emilee Robles RN * Is person blind or have serious difficulty seeing? Answer Date of Assessment Author No 09/01/2017 10:30 PM CDT Emilee Bee RN * Does person have serious difficulty walking/climbing stairs? Answer Date of Assessment Author No 09/01/2017 10:30 PM CDT Emilee Bee RN * Does person have difficulty dressing/bathing? Answer Date of Assessment Author No 09/01/2017 10:30 PM CDT Emilee Bee RN * Does person have difficulty doing errands alone? Answer Date of Assessment Author No 09/01/2017 10:30 PM CDT Emilee Bee RN documented as of this encounter Mental Status * Does person have difficulty concentrating/remembering/making decisions? Answer Entry Date Author No 09/01/2017 10:30 PM CDT Emilee Bee RN documented in this encounter Plan of Treatment Not on file documented as of this encounter Procedures Procedure Name Priority Date/Time Associated Diagnosis Comments DERMATOPATHOLOGY Routine 01/19/2019 12:0 0 AM CDT documented in this encounter Results * DERMATOPATHOLOGY (01/19/2019 12:00 AM CDT) Case Report Dermatopathology Report Case: [id number] Authorizing Provider: Rafal Lopez MD Collected: 01/19/2019 12:00 AM Ordering Location: [facility] DermPath Lab Received: 01/20/2019 11:15 AM Pathologist: Michael Casarez MD Specimen: Skin, right abdomen 9 12:22 PM CDT DERMATOPATHOLOGY LABORATORY Final Diagnosis Specimen A. SKIN, right abdomen: BENIGN VERRUCOUS KERATOSIS (L82.1) NOT PRESENT AT SAMPLED MARGIN 9 12:22 PM CDT DERMATOPATHOLOGY LABORATORY at 1222 CDT Clinical History Changing lesion. Check margins. 9 12:22 PM CDT DERMATOPATHOLOGY LABORATORY Gross Description Specimen A: Received is one formalin filled container labeled with the patient's name and designated right abdomen. The specimen consists of a non-oriented ellipse of skin measuring [id number]. The epidermal surface is unremarkable. The margin is inked green. The specimen is bisected and submitted in cassette. Jar 0. 12:22 PM T DERMATOPATHOLOGY LABORATORY Microscopic Description Specimen A. SKIN, right abdomen: Sections show hyperkeratosis, papillomatosis, hypergranulosis, and acanthosis. These histological findings can be seen in a verruca vulgaris or a seborrheic keratosis. This lesion is not present at the sampled margin of the specimen. 12:22 PM T DERMATOPATHOLOGY LABORATORY Disclaimer An external and internal positive and negative controls are appropriate for the histochemical, immunohistochemical and immunofluorescence stain(s) in this case (if any), except where stated explicitly. The performance characteristics of the stain(s) cited in this report were developed and its performance characteristic determined by the Dermatopathology Laboratory at [facility], directed by Dr. Kriss Casarez. These tests need not be, and therefore are not, approved by the [place] Food and Drug Administration. The tests are used for clinical purposes. Billing Codes Specimen Charges Stain Charges 52224 1 12:22 PM CDT DERMATOPATHOLOGY LABORATORY Embedded Images 12:22 PM CDT DERMATOPATHOLOGY LABORATORY Pathology/Cytolog y TISSUE SPECIMEN FROM SKIN / Unknown 01/19/2019 01/20/2019 11:15 AM CDT Rafal Lopez MD LAB - PATHOLOGY/CYTOLOGY MISBAH MARIN Final Result DERMATOPATHOLOGY LABORATORY [facility] - Department of Dermatology [address] [place] [address], 5th Floor Lab [address] [phone] documented in this encounter Visit Diagnoses Not on filedocumented in this encounter Care Teams Search Engine Marketing Strategist Relationship Specialty Start Date End Date Rafal Lopez MD [address] [place] [id number] PCP - General Family Medicine 08/29/17 Kalyani Soliz, RN Registered Nurse 09/01/17 documented as of this encounter
--- OUTSIDE RECORDS SUMMARY | 2025-01-31 08:27 | XMS_ITS | Clinical Summary ---
Author Organization [facility] Address [address] [place] [address] Care Team Providers Care Door Builder Name Role Phone Rafal Lopez MD Primary Care Provider [phone] K[facility]iz RN [facility] Source Comments [facility],non-owned Affiliates and Associated Physician Practices is amultiple site organization consisting of ambulatory clinics and hospital sitesin [place], [place], [place] and [place]. This disclosure is being madepursuant to the Care Everywhere program and may not contain all information available regarding this patient. Last updated 18.[facility] Allergies Active Allergy Reactions Criticality Noted Date Comments Amoxicillin-Pot Clavulanate Rash Medium 09/04/19 23 Ibandronic Acid Other 05/01/2020 Chest and sternal pain Numbness left arm Dizziness Sulfa Drugs Rash Medium 05/30/2017 Medications * Be aware that medications may not be up to date on this document. Alwaysverify current medications with the patient. Cholecalcifero l 1000 UNITS Active Other Med Name: Multiple homeopathic medications and vitamins, oils Active levothyroxine (SYNTHROID) 50 MCG tablet 1 Active denosumab (PROLIA) 60 MG/ML SC injection Inject 1 mL subcutaneously once Active fluticasone propionate (Flonase) 50 MCG/ACT nasal spray [place] 1 (one) spray into the nose once daily Active MULTIPLE VITAMIN PO Active CALCIUM PO Active lutein 10 MG tablet Take 1 (one) tablet by mouth once daily Active Probiotic Product (PROBIOTIC PO) Activ e cyclobenzaprin e (Flexeril) 10 MG tablet TAKE 1 TABLET BY MOUTH BEFORE BEDTIME AND IF NO SIDE EFFECTS ADD 1 TABLET IN THE MORNING AFTER 3 DAYS Active Active Problems Problem Noted Date Diagnosed Date Osteoporosis 08/21/2020 Rectocele 05/30/2017 Perineocele 05/30/2017 Stress incontinence 05/30/2017 Urge incontinence 05/30/2017 Cystocele, midline 05/30/2017 Genuine stress incontinence, female Midline cystocele Incomplete uterovaginal prolapse Encounters Date Type Department Care Team Description 12/14/2024 9:50 AM CDT Office Visit [facility] - BODY AND FENDER MECHANIC APPRENTICE [address], [facility] [address] [place] [address] Livan Welch Che, MD Urge incontinence (Primary Dx) 12/14/2024 Travel from Last 3 Months Immunizations Immunization Administration Dates Next Due INFLUENZA VACCINE, QUADR. (F LUZONE; FLULAVAL; FLUARIX; AFLURIA QUADRIVALENT; 6MO+), 0.5 ML (IIV4) 05/01/2020 TDAP (7yrs+) 05/01/2020 Family History Medical History Relation Name Comments Hypertension Father Osteoporosis Father Hypertension Mother Osteoporosis Mother Hypertension Sister Relation Name Status Comments Father Mother Sister Social History Tobacco Use Types Packs/Day Years Used Date Smoking Tobacco: Former Cigarettes Q uit: 06/09/1985 Smokeless Tobacco: Never Tobacco Cessation:Counseling Given: Not Answered Alcohol Use Standard Drinks/Week Comments Yes 0 (1 standard drink = 0.6 oz pur e alcohol) occassionally PHQ-2 Answer Date Recorded Patient Health Questionnaire-2 Score 0 12/14/2024 Comments No Sex and Gender Information Value Date Recorded Sex Assigned at Not on file Legal Sex Female 5:47 PM 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 Gender Identity Not on file Sexual Orientation Not on file Last Filed Vital Signs Vital Sign Reading Time Taken Comments Blood Pressure 126/74 12/14/2024 9:38 AM CDT Pulse 69 09/02/2017 8:28 AM CDT Temperature 36.3 C (97.4 F) 01/06/2024 8:28 AM CDT Respiratory Rate 18 09/02/2017 8:28 AM CDT Oxygen Saturation 98% 09/02/2017 8:28 AM CDT Inhaled Oxygen Concentration - - Weight 92.3 kg (203 lb 6.4 oz) 12/14/2024 9:38 A M CDT Height 167.6 cm (5' 6) 12/14/2024 9:38 AM CDT Body Mass Index 32.83 12/14/2024 9:38 AM CDT Plan of Treatment Health Maintenance Due Date Last Done Comments COLOGUARD (AGES 45-75) - COL ON CA SCREENING 1959 COLON MONITORING 1959 COLONOSCOPY - COLON CA SCREENING 1959 CT COLONOGRAPHY - COLON CA SCREENING 1959 Colorectal Cancer Screening 1959 FIT - COLON CA SCREENING 1959 FLEX SIG - COLON CA SCREENING 1959 LIPID TESTING 1959 MAMMOGRAM 1959 HIV SCREENING 08/09/1974 HEPATITIS C SCREENING 08/05/1977 PNEUMOCOCCAL VACCINE 50+ (1 of 1 - PCV) 08/09/2009 ZOSTER VACCINE (1 of 2) 08/09/2009 SCREENING FOR DIABETES 01/06/2024 COVID-19 VACCINE ( - 2023-2 5 season) 2024 06/11/2021, 10/13/2020, 09/22/2020 MEDICARE AWV CALENDAR YEAR 2024 INFLUENZA VACCINE (#1) 2025 05/01/2020 PAP with HPV 07/18/2027 07/18/2022 DTAP/TDAP/TD VACCINES (2 - T d or Tdap) 05/01/2030 05/01/2020 Respiratory Syncytial Virus (RSV) Vaccine Pt: or over 60 yrs (1 - 1-dose 75+ series) 08/09/2034 BONE DENSITY TESTING Completed 08/07/2021, 08/07/2020 DEPRESSION SCREENING Completed 10/21/2024, 08/07/2023 HEPATITIS B VACCINE Aged Out No longe r eligible based on patient's age to complete this topic HIB VACCINE Aged Out No longer eligi ble based on patient's age to complete this topic HPV VACCINE Aged Out No longer eligi ble based on patient's age to complete this topic MENINGOCOCCAL (Group B) VACCINE SHARED DECISION-MAKING Aged Out No longer eligible based on patient's age to complete this topic MENINGOCOCCAL GROUPS A/C/Y/W VACCINE Aged Out No longer eligible b ased on patient's age to complete this topic Medical Devices Implanted Type Area Electrician Apprentice Powerhouse Device Identifier Shelf Expiration Date Model / Serial / Lot Grft Tiss Rep Xenform Matrix Implanted:Qty: 1 on 09/01/2017 by Livan Welch Che, MD at [facility] N/A: Vagina [employer] Micro[employer] 09/07/2019 [id number] / / Sys Ureth Supp [place] 22cm .15mm Obtryx Ii Implanted:Qty: 1 on 09/01/2017 by Livan Welch Che, MD at [facility] Bladder YouTab Scimed 11/18/2019 [id number] / / Procedures Procedure Name Priority Date/Time Associated Diagnosis Comments HPV DETECTION HIGH RISK GODWIN Routine 07/18/2022 10:44 AM JUNIOR 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 Urge incontinence Well woman exam with routine gynecological exam from Last 3 Months or Most Recently Relevant to Health Maintenance Results * HPV DETECTION HIGH RISK GODWIN (07/18/2022 10:44 AM JUNIOR 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) High Risk Human Papilloma Result Not detected Not detected 07/25/2022 8:23 AM JUNIOR 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 [facility] PATH[facility] High Risk Human Papilloma Interp 07/25/2022 8:23 AM JUNIOR 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 [facility] PATH[facility] Comment:High Risk Human Hector lloma Virus was Not Detected. Pathology/Cytolo gy MISCELLANEOUS SAMPLES / Unknown 07/18/2022 10:44 AM JUNIOR 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 07/19/2022 12:01 PM JUNIOR 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 Narrative [facility] - 07/25/2022 8:23 AM JUNIOR 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 Nucleic acid isolated from the specimen was analyzed with a nucleic acid amplification test (FDA approved Gen-Probe HPV Assay) to detect high risk human papilloma virus (Types: 16, 18, 31, 33, 35, 39, 45, 51, 52, 56, 58, 59, 66, and 68). The reference range is Not Detected. Comment: These test results should not be used as the sole basis for clinical assessment and treatment of patients. These results should always be correlated with other available data (cytology, histology, and clinical information). Chuckie Susannah Welch MD LAB - MICROBIOLOGY ORDERABLES F inal Result [facility] [address] [place] [address], [facility] [phone] from Last 3 Months or Most Recently Relevant to Health Maintenance Insurance Advance Directives * Full Code (Latest Code Status on File) Date Activated Date Inactivated Comments 09/01/2017 12:43 PM 09/02/2017 11:13 AM Care Teams Door Builder Relationship Specialty Start Date End Date Rafal Lopez MD [address] [place] [address] PCP - General Family Medicine 08/29/17 Kalyani Soliz, RN Registered Nurse 09/01/17
--- NOTE | 2025-01-31 08:28 | ED.SKABFB ---
HPI - Skin/Abscess/Foreign Bdy General Chief complaint: Skin/Abscess/Foreign Body Stated complaint: shingles reaction Source: patient and RN notes reviewed Mode of arrival: ambulatory Limitations: no limitations History of Present Illness HPI narrative: Patient is a 64-year-old female who presents to the [facility] with multiple complaints. Patient has complaints of generalized rash and swelling that she developed after getting the shingles vaccine on Friday. Patient states that she noted an urticarial rash on that was generalized to trunk and bilateral arms. She states that she woke up this morning with some mild facial swelling, which has gone down. Patient believes that she is having a reaction to the vaccine. She denies trouble breathing or shortness of breath. Patient also reports small blister to the left side of her upper back that she noticed yesterday. She states that the area has increased in size. Area is tender to palpation. Patient denies recent fevers or illness. Related Data Home Medications ?Medication ?Instructions ?Recorded ?Confirmed ?Last Taken ?Type denosumab 60 mg/mL subcutaneous 60 mg subcut [id number] 12/12/21 01/13/25 Unknown History syringe (Prolia) multivitamin 1 tablet PO DAILY 12/12/21 01/13/25 Unknown History lutein 20 mg-zeaxanthin 1,000 mcg 1 cap PO BID 07/02/22 01/13/25 Unknown History capsule collagen (bovine) 100 % topical 1 applic topical DAILY 07/22/22 01/13/25 Unknown History powder lactobacillus combination no.9 4 4,000 mmu cells PO DAILY 07/22/22 01/13/25 Unknown History billion cell capsule (Adult 50 Plus Probiotic) turmeric 100 mg-vipul 150 1 cap PO DAILY 07/22/22 01/13/25 Unknown History mg-olive 50 mg-oreg 150 mg-capryl capsule cetirizine 10 mg chewable tablet 10 mg PO DAILY 01/20/23 01/13/25 Unknown History (Zyrtec) cholecalciferol (vitamin D3) 10 10 mcg PO DAILY 01/20/23 01/13/25 Unknown History mcg (400 unit) tablet (Vitamin D3) ciclopirox 8 % topical solution topical 01/08/24 01/13/25 Unknown History calcium carbonate 500 mg PO BID 01/13/25 01/13/25 Unknown History Allergies Allergy/AdvReac Type Severity Reaction Status Date / Time ibandronate sodium (From AdvReac Intermediate Dizziness Verified 01/31/25 08:41 Boniva) amoxicillin (From Augmentin) AdvReac Mild Rash Verified 01/31/25 08:41 clavulanic acid (From AdvReac Mild Rash Verified 01/31/25 08:41 Augmentin) Sulfa (Sulfonamide AdvReac Mild RASH Verified 01/31/25 08:41 Antibiotics) Review of Systems Review of Systems: CONSTITUTIONAL: Denies fever, chills, or sweats. EYES: Denies visual changes, redness, or discharge. ENT: Denies otalgia and sore throat. Reports mild facial swelling upon waking. CARDIOVASCULAR: Denies chest pain, palpitations, or edema. RESPIRATORY: Denies cough or dyspnea. GASTROINTESTINAL: Denies abdominal pain, nausea, vomiting, or diarrhea. GENITOURINARY: Denies dysuria or hematuria. SKIN: Reports rash and wound. MUSCULOSKELETAL: Denies back pain, joint pain, or myalgia. NEUROLOGIC: Denies headache, numbness, or weakness. Pertinent positives per HPI. [facility], [facility] Past Medical History Medical History Anxiety disorder, unspecified COVID-19 Chronic fatigue Deviated septum Foot pain, right Screen for colon cancer Screening mammogram for high-risk patient Osteoporosis Screening for breast cancer Hypothyroidism Surgical History Surgical History H/O colonoscopy History of bladder surgery History of ankle surgery Family History Family History Father Hypertension Osteoporosis Cancer Mother Hypertension Osteoporosis Cancer Thyroid disorder Sibling Osteoporosis Hypertension Social History Social History Smoking status: Never smoker Second hand tobacco smoke exposure: Yes Alcohol intake: current Substance use: never Substance use type: does not use Do You Feel Safe in your Home?: Yes Lack of Transportation: No Lack of Food: Never True Current Housing: I Have Housing Concerned About Future Housing: No Difficulty Paying Gas/Electric Bills: No Difficulty Paying for Meds: No Currently Unemployed: No Education: High School Diploma/GED Difficulty w/ Childcare or Family Care: No Living arrangements: with family Occupation/Education: retired 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 There is no relevant family history pertinent to the patient complaint. Exam Narrative: GENERAL: This is a well-nourished, well-developed patient, in no apparent distress. HEAD: normocephalic, atraumatic. Very mild periorbital swelling. EYES: PERRL. Sclera clear/white. Vision is grossly intact. EARS: External ears normal, auditory canals clear and without drainage, TMs normal without perforation. Hearing grossly intact. NOSE: External nose normal with no obvious nasal discharge, nares without redness, no rhinorrhea. THROAT: Mucous membranes moist, posterior pharynx clear. NECK: Neck supple, non-tender without lymphadenopathy, masses or thyromegaly. CARDIOVASCULAR: Regular rate and rhythm without murmurs, gallops, or rubs. RESPIRATORY: Clear to auscultation. Breath sounds equal bilaterally. No wheezes, rales, or rhonchi. GASTROINTESTINAL: Abdomen soft, non-tender, nondistended. Bowel sounds are active. No hepato-splenomegaly, or palpable masses. No guarding. SKIN: Urticarial rash to trunk and bilateral arms. <0.5cm blister to left upper back with some induration. No erythema. NEURO: awake, alert, and oriented to person, place and time. There were no obvious focal neurologic abnormalities. EXTREMITIES: No clubbing, cyanosis, or edema. No joint tenderness, effusion, or edema noted. BACK: Nontender without deformity or crepitance. No flank tenderness. Course Course Level of Care: Express Care Visit Vital Signs Vital signs: Vital Signs Temperature 98.2 F 01/31/25 08:22 Pulse Rate 81 01/31/25 08:22 Respiratory Rate 16 01/31/25 08:22 Blood Pressure 122/72 01/31/25 08:22 Pulse Oximetry 100 01/31/25 08:22 Oxygen Delivery Room Air 01/31/25 08:22 Temperature 98.2 F 01/31/25 08:22 Pulse Rate 81 08/25/25 08:22 Respiratory Rate 16 01/31/25 08:22 Blood Pressure 122/72 01/31/25 08:22 Pulse Oximetry 100 01/31/25 08:22 Oxygen Delivery Room Air 01/31/25 08:22 Reviewed MDM - Skin/Abscess/Foreign Bdy MDM Narrative Medical decision making narrative: Take steroids as directed. May take Benadryl 25 mg every 4-6 hours if needed for itching. If symptoms worsen, go to the emergency dept. Follow up with your repair mechanic this upcoming week and discuss possibility of an oncology transplant network manager consultation. Apply antibacterial ointment to blister. Follow-up with repair mechanic if area increases in size or you develop redness around the wound or fever. Differential Diagnosis Differential diagnosis: Likely abscess of skin or subcutaneous tissue, urticaria, herpes zoster, cellulitis and contact dermatitis Critical Care Time Critical Care Time Critical Care Time: No Discharge Plan Discharge Clinical Impression: Allergic reaction Qualifiers: Encounter type: initial encounter Qualified Code(s): T78.40XA - Allergy, unspecified, initial encounter Patient Disposition: Home Condition: Stable Additional Instructions: Take steroids as directed. May take Benadryl 25 mg every 4-6 hours if needed for itching. If symptoms worsen, go to the emergency dept. Follow up with your repair mechanic this upcoming week and discuss possibility of an oncology transplant network manager consultation. Apply antibacterial ointment to blister. Follow-up with repair mechanic if area increases in size or you develop redness around the wound or fever. Patient Language: Telugu Prescriptions: New prednisone 50 mg tablet 50 mg PO DAILY 5 Days Qty: 5 0RF mupirocin [Centany] 2 % ointment 1 applic topical TID Qty: 22 0RF No Action fluticasone propionate [Flonase Allergy Relief] 50 mcg/actuation spray,suspension 2 spray intranasal DAILY Qty: 16 0RF Rx Instructions: administer into each nostril cetirizine [Zyrtec] 10 mg tablet,chewable 10 mg PO DAILY cholecalciferol (vitamin D3) [Vitamin D3] 10 mcg (400 unit) tablet 10 mcg PO DAILY ciclopirox 8 % solution topical multivitamin Tablet 1 tablet PO DAILY Prolia 60 mg/mL syringe 60 mg subcut [id number] Adult 50 Plus Probiotic 4 billion cell capsule 4,000 mmu cells PO DAILY Rx Instructions: administer with a meal [id number]-capry 100 mg-150 mg- 50 mg-150 mg capsule 1 cap PO DAILY collagen (bovine) 100 % powder 1 applic topical DAILY Rx Instructions: apply a 1/4 inches inch thick layer, do not pack tightly; cover using a non-adherent dressing calcium carbonate 500 mg calcium (1,250 mg) tablet 500 mg PO BID levothyroxine 50 mcg tablet See Rx Instructions .ROUTE .COMPLEX Qty: 90 3RF Dose Instruction: TAKE 1 TABLET BY MOUTH DAILY Rx Instructions: TAKE 1 TABLET BY MOUTH DAILY lutein-zeaxanthin 20 mg- 1,000 mcg Capsule 1 cap PO BID Follow-up/Referrals: Rafal Lopez MD [Primary Care Provider, [facility]] Time of Disposition: 08:47
== END 2025-01-31 08:50 | disposition home or self-care (01) ==
PROVIDERS: Emergency Provider Nurse Practitioner; PCP Family Medicine
DX: T78.40XA Allergy, unspecified, initial encounter (principal); E03.9 Hypothyroidism, unspecified; M81.0 Age-related osteoporosis without current pathological fracture; Z86.16 Personal history of COVID-19
CPT/HCPCS: 99213; G0463

== ENCOUNTER 2025-05-17 09:43 | Outpatient (CLI) | payer MEDICARE, SELFPAY ==
--- NOTE | ~2025-05-17 | US_ITS ---
EXAMINATION: US pelvic limited, 05/17/2025 9:46 RN POOL HISTORY: R35.0 - Frequency of micturition Comparison: None Technique: Cooper-scale and color Doppler images were obtained. Findings: There is no gallbladder wall thickening identified. Post void bladder volume 91 cc. IMPRESSION: Unremarkable exam Reviewed, dictated and finalized at location P. POOL IMPRESSION: Unremarkable exam
== END 2025-05-17 09:44 | disposition home or self-care (01) ==
LOC: MICIMG 09:44
PROVIDERS: PCP Family Medicine; Visit Provider Nurse Practitioner Adult Health
DX: R35.0 Frequency of micturition (principal)
CPT/HCPCS: 76857